=== PATIENT | male | born 1985 | race Caucasian/White ===

== ENCOUNTER 2023-12-28 08:06 | Emergency (ER) | payer OTHER ==
[2023-12-28 08:23] VITALS: RESP 18
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
--- NOTE | 2023-12-28 09:31 | XR ---
EXAM TYPE: LUMBAR SPINE X RAY SERIES COMPARISON: NONE HISTORY: Pain TECHNIQUE: 4 views are submitted. FINDINGS: Alignment is anatomic. The pedicles are intact. The transverse processes are intact. There is diff use osteopenia. Severe degenerative disc disease L5-S1 with facet arthropathy. No spondylolisthesis. Mild SI joint arthropathy. IMPRESSION: 1. Severe degenerative disc disease L5-S1 with facet arthropathy.
[2023-12-28 10:37] VITALS: BP 122/76; PULSE 72; TEMP 98.4
== END 2023-12-28 10:36 | disposition home or self-care (01) ==
LOC: EC 08:06
DX: M54.16 Radiculopathy, lumbar region (principal); V43.52XA Car driver injured in collision with other type car in traffic accident, initial encounter; Y92.410 Unspecified street and highway as the place of occurrence of the external cause
CPT/HCPCS: 72100; 99284